=== PATIENT | male | born 1990 | race Caucasian/White ===

== ENCOUNTER 2018-03-24 14:03 | Emergency (ER) | payer OTHER, SELFPAY ==
[2018-03-24 14:04] VITALS: BP 136/99; PULSE 72; RESP 16; TEMP 36.5; O2SAT 98; BMI 33.1
--- NOTE | 2018-03-24 14:19 | ED.DCSUM_ITS ---
- ER Visit Summary Date of Service: 03/24/18 Chief Complaint: Left lower leg laceration History of Present Illness: The patient is a 28 M is sharing a table saw and caught his left lower leg above the ankle on the saw causing a laceration. All was not running. The patient states his tetanus is not up-to-date. He denies other injuries. Physical Examination: Appearing young male. Vital signs stable afebrile. No acute distress. HEENT exam unremarkable. Lungs clear to auscultation. Heart regular rhythm. Abdomen soft nontender. He is moving all 4 extremities. They are all neurovascular intact with full range of motion. Normal motor strength and sensation. His left lower leg just above the lateral malleolus he has about a 1-2 inch laceration. Mild oozing of blood. No pulsatile bleeding. No foreign body. This will need to be repaired. Involves the skin and subcu tissue. There are no foreign bodies noted. It is relatively clean. Test Results: None Emergency Department Course and Treatment: Procedure note: Left lower leg laceration. Leg and then local anesthetic with lidocaine. Cleaned with Shur- Clens. Wash with saline. Explored. Closed using # 4, 4-0 Ethilon suture. Proper hemostasis and wound closure obtained. Patient tolerated procedure well. He was instructed in wound care. Treatment Plan: Wound care. Suture removal in 10 days. Watch for any signs of infection. Disposition: discharge Impression: Left lower leg laceration of 4 cm with ER repair Tetanus updated This note was generated with [employer] dictation software. It may contain incorrect words, spelling, and punctuation that were not noted in review of the chart prior to signing ED Disposition - Plan for ED Patient: Disposition: Home or Assisted Living Chief Complaint: Laceration Instructions: ED Laceration All Referrals: John Pa MD [STAFF PHYSICIAN] - 10 Day for suture removal Additional Instructions: Clean wound daily. Apply antibiotic ointment. Suture removal in 10 days.
[2018-03-24] MEDS: Diphth,Pertuss(Acell),Tet Vac 0.5 ML Vial IM (14:46)
[2018-03-24 15:26] VITALS: BP 127/89; PULSE 78; RESP 16; O2SAT 99
== END 2018-03-24 15:27 | disposition home or self-care (01) ==
PROVIDERS: Emergency Provider Emergency Medicine
DX: S81.812A Laceration without foreign body, left lower leg, initial encounter (principal); W27.0XXA Contact with workbench tool, initial encounter; Y93.9 Activity, unspecified; Y92.9 Unspecified place or not applicable; Z23 Encounter for immunization
CPT/HCPCS: 12002; 90471; 90715; 99284